=== PATIENT | female | born 1940 | race African-American/Black ===

== ENCOUNTER → 2017-05-11 | Outpatient (CLI) | payer OTHER ==
[~2017-05-11] MED LIST: ALDACTONE25 MG PO; ASPIR 8181 M1 PO; LEVAQUIN 500 M500 MG PO; LISINOPRIL20 MG PO; LOPERAMIDE 2 MG2 M1 PO; VERAPAMIL E.R240 M1 PO; ZOFRAN4 MG PO
== END ==
LOC: RAD 08:59
DX: Z12.31 Encounter for screening mammogram for malignant neoplasm of breast (principal)

== ENCOUNTER → 2018-05-29 | Outpatient (CLI) | payer OTHER | LOC: RAD 09:29 | DX: Z12.31 Encounter for screening mammogram for malignant neoplasm of breast (principal) ==